=== PATIENT | female | born 1980 | race Caucasian/White ===

== ENCOUNTER 2016-10-25 06:28 | Emergency (ER) | payer OTHER ==
[~2016-10-25] VITALS: Ht 180.3 cm; Wt 98.0 kg
[2016-10-25 06:33] VITALS: BP 150/86; PULSE 62; RESP 16; TEMP 98.1; O2SAT 98
[2016-10-25] MEDS ORDERED: LEVO.15 PO (06:36)
[2016-10-25] MEDS ORDERED: VITA1000 PO (06:36)
--- NOTE | 2016-10-25 06:51 | PD ---
HPI Chief Complaint: Injury Time Seen by Provider: 06:47 Travel History International Travel<30 days: No Contact w/Intl Traveler<30days: No Traveled to known affect area: No History of Present Illness HPI 36-year-old female here for evaluation of right calf pain. Just prior to arrival the patient was walking across the street to go to work when she felt a pain in her right calf. Pain is an aching pain that is worse with walking. She is able to ambulate with pain. Denies any numbness or tingling or weakness. Denies any ankle pain or knee pain. No other complaints at this time. PFSH Past Medical History Thyroid Disease: Yes ?: Not LMP: 10/04/16 Past Surgical History Eye Surgery: Yes Other Surgery: Yes Social History Alcohol Use: No Tobacco Use: No Substance Use: No Allergies-Medications (Allergen,Severity, Reaction): Coded Allergies: No Known Allergies (Verified Allergy, Unknown, 10/25/16) Reported Meds & Prescriptions Reported Meds & Active Scripts Active Reported Vitamin D-1000 (Cholecalciferol) 1,000 Unit Tab 5,000 Units PO DAILY Synthroid (Levothyroxine Sodium) 150 Mcg Tab 150 Mcg PO DAILY Review of Systems General / Constitutional: No: Fever, Chills Musculoskeletal: Positive: Pain, No: Limited ROM Skin: Positive Other (denies open wounds) Neurologic: No: Paresthesia Physical Exam Narrative GENERAL: Well developed well-nourished female in no acute distress SKIN: Warm and dry. No bruising or soft tissue swelling CARDIOVASCULAR: Regular rate and rhythm. No murmur appreciated. RESPIRATORY: No accessory muscle use. Clear to auscultation. Breath sounds equal bilaterally. GASTROINTESTINAL: Abdomen soft, non-tender, nondistended. Hepatic and splenic margins not palpable. MUSCULOSKELETAL: No obvious deformities. There is slight tenderness to palpation to the belly of the right calf muscle. There is no soft tissue swelling. The Achilles tendon is intact and nontender. There is no tenderness to palpation to the right knee, tibia, fibula, ankle, foot. Distal pulses are intact. 5 out of 5 muscle strength dorsi and plantar flexion, leg flexion and extension. Negative Durant's. NEUROLOGICAL: Awake and alert. No obvious cranial nerve deficits. Motor grossly within normal limits. Normal speech. Data Data Last Documented VS Vital Signs Date Time Temp Pulse Resp B/P (MAP) Pulse Ox O2 Delivery O2 Flow Rate FiO2 10/25/16 06:33 98.1 62 16 150/86 (107) 98 Orders Orders Ketorolac Inj (Toradol Inj) (10/25/16 07:00) Crutches (10/25/16 06:47) MDM Medical Decision Making Medical Screen Exam Complete: Yes Emergency Medical Condition: Yes Medical Record Reviewed: Yes Differential Diagnosis Calf strain, calf muscle tear, Achilles tendon rupture, fibular fracture Narrative Course 36-year-old female presents with right calf pain which developed today when she was walking. She felt a "pop" in the right calf muscle region. Examination is consistent with a muscle strain to the right calf. No evidence of Achilles tendon rupture. No weakness. No soft tissue swelling or bruising. Plan is to provide the patient with crutches and a dose of Toradol here. Recommended conservative therapy including ice packs, crutches, ibuprofen at home. Discussed signs and symptoms of compartment syndrome that would warrant return to the emergency room. Stable for discharge. Diagnosis Primary Impression: Strain of gastrocnemius muscle Qualified Codes: S86.111A - Strain of other muscle(s) and tendon(s) of posterior muscle group at lower leg level, right leg, initial encounter Additional Instructions: Ice pack several times a day 20 minutes at a time over the next few days. Crutches as needed. Ibuprofen as needed. Follow-up with primary care physician in 2 weeks. Return for any acutely new or worsening symptoms. Med/Other Pt SpecificInfo: Orthopedic Instructions Disposition: 01 DISCHARGE HOME Condition: Stable Emory Rodríguez Oct 25, 2016 06:51
[2016-10-25] MEDS ORDERED: KETOROLAC TROMETHAMINE 60 MG/2 ML (IM) VIAL IM ONE (07:00)
== END 2016-10-25 07:17 | disposition home or self-care (01) ==
LOC: NEPD 06:28
DX: S86.111A Strain of other muscle(s) and tendon(s) of posterior muscle group at lower leg level, right leg, initial encounter (principal); X50.9XXA Other and unspecified overexertion or strenuous movements or postures, initial encounter; Y93.01 Activity, walking, marching and hiking
CPT/HCPCS: 96372; 99284; E0113; J1885